=== PATIENT | female | born 1985 ===

== ENCOUNTER 2019-09-16 12:59 | Outpatient (CLI) | payer OTHER ==
--- NOTE | 2019-09-16 15:03 | XRay Report ---
RIGHT HIP AND PELVIS 2 VIEWS INDICATION: PAIN IN RIGHT HIP. COMPARISON: No relevant prior imaging study available. FINDINGS: There is no acute skeletal abnormality. No femoral head osteonecrosis. Joint spaces are maintained. N o soft tissue calcifications. IMPRESSION: 1. No acute findings. Signer Name: Mitesh Shahid MD Signed: 09/16/2019 2:59 PM Workstation Name: [id number]
== END 2019-09-16 13:00 | disposition home or self-care (01) ==
LOC: XRAY 12:59
PROVIDERS: ATTEND Internal Medicine
DX: M25.551 Pain in right hip (principal)